=== PATIENT | male | born 1935 | race Caucasian/White ===

== ENCOUNTER 2017-06-24 09:20 | Emergency (ER) | payer MEDICARE, OTHER ==
[~2017-06-24] VITALS: Ht 175.3 cm; Wt 90.7 kg
--- NOTE | 2017-06-24 10:23 | Diagnostic Imaging Report ---
EXAMINATION: 2 views of the left hip. INDICATION: Dislocation. FINDINGS: There is a posterior dislocation of the left arthroplasty. The acetabular cup and the femoral component however are well seated in their corresponding locations with no evidence of displacement. No acute fracture seen. There is suggestion of pre-existing remodeling of the acetabular fossa and a high riding remodeled acetabulum where the prosthesis with augmentation screws are seen. No prior studies are available for comparison. IMPRESSION: Posterior dislocation of the left hip prosthesis. Dictated by: Dictated on workstation # [id number]
--- NOTE | 2017-06-24 10:35 | ED Hip Pain/Injury ---
General Chief Complaint: Hip/Pelvic Problems Stated Complaint: HIP DISLOCATION Nursing Triage Note: TO ROOM PER EMS FORM VIA [facility] HAD HIP REPLACEMENT ON 06/14 AT [place] BY DR DELATORRE. WAS SITTING DOWN ON TOLIET FELT POP HE DID. Source: patient Exam Limitations: no limitations History of Present Illness Time seen by provider: 09:21 Initial Comments The patient is an 82-year-old white male. He presents with left hip pain. He had a left hip replacement done at [facility] in [place] by Dr. Delatorre on June 14. He reports that he was in the process of sitting down on the commode when he felt a pop and was unable to stand back up again. Timing/Duration: just prior to arrival Location: hip (L) Method of Injury: unknown Associated Symptoms: denies symptoms Constitutional: see HPI EENTM: no symptoms reported Respiratory: no symptoms reported Cardiovascular: no symptoms reported Gastrointestinal: no symptoms reported Genitourinary: no symptoms reported Musculoskeletal: see HPI, joint pain, muscle pain Skin: no symptoms reported Psychiatric/Neurological: No Symptoms Reported Past Ohmmjaq-Emkgju-Mfyhis Hx Patient Social History Alcohol Use: Denies Use Recreational Drug Use: No Smoking Status: Never a Smoker Recent Foreign Travel: No Contact w/Someone Who Travel: No Recent Infectious Disease Expo: No Surgeries History of Surgeries: Yes Surgeries: Orthopedic Cardiovascular History of Cardiac Disorders: Yes (CHF) Cardiac Disorders: Coronary Artery Disease, High Cholesterol, Hypertension Neurological History of Neurological Disord: Yes (NERVE PAIN) Physical Exam Vital Signs Vital Sign - Last 12Hours 06/24/17 09:20 Temp 99.0 Pulse 83 Resp 18 B/P (MAP) 157/82 (107) Pulse Ox 93 Capillary Refill : Less Than 3 Seconds General Appearance: Mild Distress HEENT: Normal ENT Inspection Neck: Normal Inspection Cardiovascular: Regular Rate, Rhythm, No Edema, No Gallop, No JVD, No Murmur, Normal Peripheral Pulses Respiratory: Chest Non Tender, Lungs Clear, Normal Breath Sounds, No Accessory Muscle Use, No Respiratory Distress, Accessory Muscle Use Gastrointestinal: Normal Bowel Sounds, No Organomegaly, No Pulsatile Mass, Non Tender, Soft Extremity: Normal Capillary Refill, Normal Inspection, Normal Range of Motion, Non Tender, No Calf Tenderness, No Pedal Edema, Calf Tenderness Comments Left foot is internally rotated Progress/Results/Core Measures Results/Orders My Orders Orders - SHANNON MCCLELLAND MD Hip, Left, 2 Views (06/24/17 ) Vital Signs/I&O Vital Sign - Last 12Hours 06/24/17 09:20 Temp 99.0 Pulse 83 Resp 18 B/P (MAP) 157/82 (107) Pulse Ox 93 Blood Pressure Mean: 107 Departure Communication (Admissions) Progress Notes 1036 x-rays show dislocation of the prosthesis. I spoke to Dr. Delatorre in [place]. The patient will be transferred to the [facility] emergency room for definitive treatment. Impression Impression: Primary Impression: dislocation left hip prosthesis Disposition: Condition: Stable/Unchanged Transfer Time Spoke to Accepting Phy: 10:26 Method of Transfer: EMS Departure-Patient Inst. Referrals: NO,LOCAL PHYSICIAN (PCP/Family) Primary Care Physician SHANNON MCCLELLAND MD Jun 24, 2017 10:35
[2017-06-24] MEDS ORDERED: fentaNYL INJECTION 100 MCG/2 ML AMP IVP PRN (11:00)
[2017-06-24 12:30] VITALS: BP 150/55
== END 2017-06-24 12:59 | disposition short-term general hospital (02) ==
LOC: ER 09:25
DX: T84.021A Dislocation of internal left hip prosthesis, initial encounter (principal); I25.10 Atherosclerotic heart disease of native coronary artery without angina pectoris; E78.00 Pure hypercholesterolemia, unspecified; I10 Essential (primary) hypertension; Z96.642 Presence of left artificial hip joint; X50.0XXA Overexertion from strenuous movement or load, initial encounter; Y92.002 Bathroom of unspecified non-institutional (private) residence as the place of occurrence of the external cause
CPT/HCPCS: 51702; 73502

== ENCOUNTER 2017-07-03 14:47 | Emergency (ER) | payer MEDICARE, OTHER ==
[~2017-07-03] VITALS: Ht 177.8 cm; Wt 90.7 kg
[2017-07-03] MEDS ORDERED: fentaNYL INJECTION 100 MCG/2 ML AMP IVP ONE (15:00)
--- NOTE | 2017-07-03 15:01 | ED Lower Extremity ---
General Stated Complaint: HIP INJ Source: patient Exam Limitations: no limitations History of Present Illness Time seen by provider: 14:59 Initial Comments To ER with reports of left hip dislocation. He arrives per EMS from skilled nursing. Patient had a left hip replacement by Dr. Delatorre at [facility] on June 14 of this year. He then went to the skilled nursing to recover as his has dementia and is unable to care for him at home. He was here last week for a left hip dislocation and transferred to [facility] where he states that the hip was reduced in the emergency room. Today, while sitting on the commode, he twisted to the right and felt the left hip popped out of place again. Onset: just prior to arrival Severity: moderate Pain/Injury Location: left hip Modifying Factors: Worse With Movement Allergies and Home Medications Allergies Coded Allergies: hydrocodone (Verified Allergy, Unknown, 06/24/17) Constitutional: see HPI EENTM: see HPI Respiratory: no symptoms reported Cardiovascular: no symptoms reported Genitourinary: no symptoms reported Musculoskeletal: see HPI Skin: no symptoms reported Psychiatric/Neurological: No Symptoms Reported Past Idqyiyd-Hkvgte-Iyuhav Hx Surgeries History of Surgeries: Yes Surgeries: Orthopedic Cardiovascular History of Cardiac Disorders: Yes (CHF) Cardiac Disorders: Coronary Artery Disease, High Cholesterol, Hypertension Neurological History of Neurological Disord: Yes (NERVE PAIN) Physical Exam Vital Signs Vital Sign - Last 12Hours 07/03/17 14:50 Temp 97.4 Pulse 80 Resp 18 B/P (MAP) 158/69 (98) Pulse Ox 98 Capillary Refill : General Appearance: WD/WN, no apparent distress HEENT: PERRL/EOMI, normal ENT inspection Respiratory: no respiratory distress, no accessory muscle use Gastrointestinal: non tender, soft Hips: right hip non-tender, right hip normal inspection, right hip normal range of motion, left hip pain, left hip soft tissue tenderness Legs: bilateral leg non-tender, bilateral leg normal inspection, bilateral leg normal range of motion, left leg other (shortening of the left leg) Knees: bilateral knee non-tender, bilateral knee normal inspection, bilateral knee normal range of motion Ankles: bilateral ankle non-tender, bilateral ankle normal inspection, bilateral ankle normal range of motion Feet: bilateral foot non-tender, bilateral foot normal inspection, bilateral foot normal range of motion Skin: normal color, warm/dry Splinting and Joint Reduction : Pre-Proc Neuro Vasc Exam: normal Post-Proc Neuro Vasc Exam: normal Joint Reduction Site: hip (L) Reduction Attempts: 1 Pre-Procedure NV Exam: Yes post joint reduction film: joint reduced Progress/Results/Core Measures Results/Orders My Orders Orders - PATRICE SINGH APRN Fentanyl Injection (Sublimaze Injection (07/03/17 15:00) Pelvis With Left Hip 2-3 Views (07/03/17 14:54) Ns Iv 500 Ml (Sodium Chloride 0.9%) (07/03/17 15:30) Etomidate Injection (Amidate Injection) (07/03/17 15:30) Ondansetron Injection (Zofran Injectio (07/03/17 15:30) Hip, Left, 2 Views (07/03/17 15:24) Medications Given in ED Current Medications Medications Dose Ordered Sig/Diana Route Start Time Stop Time Status Last Admin Dose Admin Fentanyl Citrate 50 mcg ONCE ONCE IVP 07/03/17 15:00 07/03/17 15:01 DC 07/03/17 15:09 50 MCG Vital Signs/I&O Vital Sign - Last 12Hours 07/03/17 14:50 Temp 97.4 Pulse 80 Resp 18 B/P (MAP) 158/69 (98) Pulse Ox 98 Diagnostic Imaging Diagonstic Imaging: Xray Comments NAME: DIANELYS ARVIZU [facility] REC#: [id number] PT STATUS: REG ER : 1935 PHYSICIAN: PATRICE SINGH APRN ADMIT DATE: 07/03/17/ER Draft Date of Exam:07/03/17 HIP, LEFT, 2 VIEWS EXAMINATION: Left hip, 2 views COMPARISON: 06/24/2017. 07/03/2017 at 1530 hrs. INDICATION: 82-year-old female, postreduction. FINDINGS: The femoral head component of the left hip prosthesis has been reposition and is currently positioned within the acetabular cup. There is no identified acute fracture. IMPRESSION: 1. Interval repositioning of the left total hip prosthesis without identified interval complication. Dictated on workstation # [id number] Dict: 07/03/17 1604 Trans: 07/03/17 1607 [id number] Interpreted by: ROHIT RUBIO MD Electronically signed by: Departure Communication (Admissions) Progress Notes 1545- initial x-ray showed left hip posterior dislocation. Patient agreed to conscious sedation closed reduction here. Patient was given 20 mg of etomidate, 50 g of fentanyl, 4 mg Zofran and attached to the end-tidal CO2 monitoring. Pelvis was held stable, hip was flexed to 90 and traction applied. Palpable foot was felt. AP lateral x-rays confirm reduction. Abduction pillow placed. 1625- to contact the patient's attempted to contact the patient's orthopedist Dr. Delatorre at [place]. I have not yet heard back. I discussed with Dr. Wilson who is on-call for orthopedics for us. States that the patient does not actually need an abduction pillow but a knee immobilizer would be more helpful. Given that he has dislocated twice since surgery he may need a hip revision and should follow-up with Dr. Delatorre at [place]. An elevated toilet seat might also be helpful. Impression Impression: Primary Impression: Hip dislocation, left Disposition: 01 HOME, SELF-CARE Condition: Stable Departure-Patient Inst. Decision time for Depature: 16:00 Referrals: NO,LOCAL PHYSICIAN (PCP) Primary Care Physician Patient Instructions: Hip Dislocation (DC) Add. Discharge Instructions: 1. Wear the knee immobilizer at all times. This will help keep the hips straight even though this is not a knee issue. Please obtain an elevated toilet seat for him so that he does not have to flex the hip to such a degree. Call Dr. Delatorre on Tuesday to report that the hip has dislocated a second time. PATRICE SINGH APRN Jul 03, 2017 15:01
[2017-07-03] MEDS ORDERED: ONDANSETRON 4 MG/2 ML (SDV) Z0FRAN IVP ONE (15:30)
[2017-07-03] MEDS ORDERED: NS IV 500 ML 500 ML IV SCH (15:30)
[2017-07-03] MEDS ORDERED: ETOMIDATE IV SOLN 20 MG/10 ML VIAL IV ONE (15:30)
--- NOTE | 2017-07-03 15:53 | Diagnostic Imaging Report ---
EXAMINATION: Pelvis, single view. Left hip, 2 additional views. COMPARISON: None. HISTORY: 82-year-old male, left hip dislocation. FINDINGS: There is dislocation of the femoral head component of the left total hip prosthesis from the acetabulum which is superiorly and laterally displaced. The acetabular cup appears intact. The visualized portions of the femoral component of the prosthesis are intact. There is notching of the bone subjacent to the inferior aspect of the acetabular cup. There is question of the acetabular cup being somewhat vertically oriented. There is severe joint space loss of the right hip. There is posterior spinal fusion hardware spanning L3 to S1. There is no identified acute fracture. IMPRESSION: 1. Dislocation of the left total hip prosthesis with the femoral head component being superiorly and laterally displaced. 2. No identified acute fracture. Dictated by: Dictated on workstation # [id number]
--- NOTE | 2017-07-03 16:07 | Diagnostic Imaging Report ---
EXAMINATION: Left hip, 2 views COMPARISON: 06/24/2017. 07/03/2017 at 1530 hrs. INDICATION: 82-year-old female, postreduction. FINDINGS: The femoral head component of the left hip prosthesis has been reposition and is currently positioned within the acetabular cup. There is no identified acute fracture. IMPRESSION: 1. Interval repositioning of the left total hip prosthesis without identified interval complication. Dictated by: Dictated on workstation # [id number]
[2017-07-03 17:04] VITALS: BP 132/69
== END 2017-07-03 17:04 | disposition home or self-care (01) ==
LOC: EDUNIT# 14:47 → ER 14:48
DX: T84.021A Dislocation of internal left hip prosthesis, initial encounter (principal); I25.10 Atherosclerotic heart disease of native coronary artery without angina pectoris; I11.0 Hypertensive heart disease with heart failure; I50.9 Heart failure, unspecified; E78.00 Pure hypercholesterolemia, unspecified; Z96.642 Presence of left artificial hip joint; X50.0XXA Overexertion from strenuous movement or load, initial encounter
CPT/HCPCS: 73502; 93041

== ENCOUNTER → 2017-07-30 | Outpatient (CLI) | payer MEDICARE, OTHER ==
[2017-07-30 09:56] LABS: BILIRUBIN,URINE NEGATIVE (NEGATIVE); CLARITY,URINE CLEAR; COLOR,URINE YELLOW; GLUCOSE, URINE (UA) NEGATIVE (NEGATIVE); KETONES,URINE NEGATIVE (NEGATIVE); LEUKOCYTE ESTERASE ,URINE NEGATIVE (NEGATIVE); NITRITE,URINE NEGATIVE (NEGATIVE); PH,URINE 5 (5-9); PROTEIN,URINE NEGATIVE (NEGATIVE); UROBILINOGEN,URINE NORMAL (NORMAL)
[2017-07-30 10:04] LABS: BACTERIA,URINE NEGATIVE /HPF; HYALINE CASTS, URINE 25-50 /LPF
== END ==
LOC: CVS 09:51
PROVIDERS: ATTEND Internal Medicine
DX: R39.9 Unspecified symptoms and signs involving the genitourinary system (principal)
CPT/HCPCS: 81000